=== PATIENT | male | born 2000 | race Caucasian/White ===

== ENCOUNTER 2019-10-04 14:50 | Emergency (ER) | payer OTHER ==
[~2019-10-04] VITALS: Ht 175.3 cm; Wt 65.9 kg
[2019-10-04] MEDS ORDERED: NS 1,000 ML IV ONE (15:30)
[2019-10-04] MEDS ORDERED: THIAMINE 100 MG TAB PO ONE (15:30)
[2019-10-04 15:46] LABS: BASO % 0.5 % (0.0-1.0); EOS # 0.1 10^3/uL (0.0-0.5); EOS % 1.1 % (0.0-3.0); HEMATOCRIT 44.2 % (42.0-52.0); HEMOGLOBIN 14.5 g/dl (13.5-17.5); LYMPH # 0.8 10^3/uL (1.5-5.0); MEAN CORPUSCULAR HGB CONC 32.8 g/dl (32.0-36.5); MEAN CORPUSCULAR VOLUME 85.5 fl (80.0-96.0); MONO # 0.6 10^3/uL (0.0-0.8); MONO % 7.8 % (0.0-5.0); NEUTROPHILS # 6.1 10^3/uL (1.5-8.5); NEUTROPHILS % 80.3 % (36.0-66.0); PLATELET COUNT, AUTOMATED 226 10^3/uL (150-450); RED BLOOD COUNT 5.17 10^6/uL (4.30-6.10); WHITE BLOOD COUNT 7.6 10^3/uL (4.0-10.0)
[2019-10-04 16:27] LABS: ALBUMIN 4.1 GM/DL (3.2-5.2); ALT/SGPT 19 U/L (12-78); BILIRUBIN,DIRECT 0.2 MG/DL (0.0-0.2); BILIRUBIN,TOTAL 0.4 MG/DL (0.2-1.0); BLOOD UREA NITROGEN 15 MG/DL (7-18); CALCIUM LEVEL 8.8 MG/DL (8.5-10.1); CARBON DIOXIDE LEVEL 30 MEQ/L (21-32); CHLORIDE LEVEL 105 MEQ/L (98-107); CK-MB VALUE MASS < 1.0 NG/ML (<3.6); CPK CREATINE PHOSPHOKINASE 140 U/L (39-308); ETHYL ALCOHOL (ETHANOL) < 0.003 % (0.000-0.010); GLOMERULAR FILTRATION RATE > 60.0 (>60); GLUCOSE, FASTING 95 MG/DL (70-100); MB/CK RELATIVE INDEX 0.71 (< OR =4); POTASSIUM SERUM 4.4 MEQ/L (3.5-5.1); SODIUM LEVEL 140 MEQ/L (136-145); TOTAL PROTEIN 7.3 GM/DL (6.4-8.2); TROPONIN I < 0.02 NG/ML (< 0.10)
[2019-10-04 16:45] VITALS: BP 140/70
--- NOTE | 2019-10-04 19:33 | ECGEPIP ---
[facility] - ED Test Date: 2019-10-04 Pat Name: JEANINE RUBI Department: Room: - Gender: Male Environmental Health Technologist: : 2000 Requested By: SIERRA Chris Order Number: [id number] Reading MD: Enrique Cavanaugh Measurements Intervals [place] Rate: 81 P: 72 CO: 141 QRS: 37 QRSD: 97 T: 20 QT: 354 QTc: 412 Interpretive Statements SINUS RHYTHM POSSIBLE RIGHT VENTRICULAR CONDUCTION DELAY NONSPECIFIC ST T WAVE CHANGES NO PRIOR ECG FOR COMPARISON Electronically Signed on 10-04-2019 19:32:43 EST by Enrique Cavanaugh
--- NOTE | 2019-10-05 07:38 | REP ---
PA LATERAL CHEST: 10/04/2019. CLINICAL HISTORY: Chest pain. FINDINGS: No prior study. Two-view show the lungs well inflated without infiltrate, effusion, atelectasis or mass. The heart, mediastinal and hilar contours are normal. There is no pneumothorax or pneumomediastinum. Bones are grossly intact. No compression deformity. No free air under the diaphragm. IMPRESSION: 1. Negative PA and lateral chest. Electronically Signed by Law Domingo MD 10/05/2019 09:29 A
== END 2019-10-04 16:59 | disposition home or self-care (01) ==
LOC: M ED 14:50 → EDBD 14:50 → M ED 16:59
DX: R00.2 Palpitations (principal); Z87.891 Personal history of nicotine dependence; F10.10 Alcohol abuse, uncomplicated
CPT/HCPCS: 71046; 80048; 80076; 82550; 82553; 84443; 84484; 85025; 93005; 93041; 94760; 99285; G0480

== ENCOUNTER 2019-11-01 15:49 | Emergency (ER) | payer OTHER ==
[~2019-11-01] VITALS: Ht 175.3 cm; Wt 67.3 kg
[2019-11-01 17:08] LABS: BASO # 0.1 10^3/uL (0.0-0.2); BASO % 0.7 % (0.0-1.0); EOS # 0.1 10^3/uL (0.0-0.5); EOS % 1.3 % (0.0-3.0); HEMATOCRIT 44.5 % (42.0-52.0); HEMOGLOBIN 15.3 g/dl (13.5-17.5); LYMPH # 1.1 10^3/uL (1.5-5.0); MEAN CORPUSCULAR HGB CONC 34.4 g/dl (32.0-36.5); MEAN CORPUSCULAR VOLUME 84.4 fl (80.0-96.0); MONO # 0.8 10^3/uL (0.0-0.8); MONO % 8.2 % (0.0-5.0); NEUTROPHILS # 7.3 10^3/uL (1.5-8.5); NEUTROPHILS % 77.5 % (36.0-66.0); PLATELET COUNT, AUTOMATED 271 10^3/uL (150-450); RED BLOOD COUNT 5.27 10^6/uL (4.30-6.10); WHITE BLOOD COUNT 9.4 10^3/uL (4.0-10.0)
[2019-11-01] MEDS ORDERED: NS 1,000 ML IV ONE (17:15)
--- NOTE | 2019-11-01 17:19 | REP ---
PA and lateral chest: Comparison is 10/04/2019. The lung noriega are clear. The cardiac size is normal. The natalia, mediastinum, and skeletal structures are unremarkable. Impression: Negative PA and lateral chest. There is no interval change. Electronically Signed by Benedict Sierra MD 11/01/2019 05:10 P
[2019-11-01 17:20] LABS: INR 1.07; PROTHROMBIN TIME 13.6 SECONDS (11.8-14.0)
[2019-11-01 17:21] LABS: PARTIAL THROMBOPLASTIN TIME 28.9 SECONDS (25.0-38.4)
[2019-11-01 17:30] LABS: ALBUMIN 4.4 GM/DL (3.2-5.2); ALT/SGPT 23 U/L (12-78); BILIRUBIN,DIRECT 0.1 MG/DL (0.0-0.2); BILIRUBIN,TOTAL 0.3 MG/DL (0.2-1.0); BLOOD UREA NITROGEN 19 MG/DL (7-18); CALCIUM LEVEL 9.2 MG/DL (8.5-10.1); CARBON DIOXIDE LEVEL 31 MEQ/L (21-32); CHLORIDE LEVEL 104 MEQ/L (98-107); CK-MB VALUE MASS < 1.0 NG/ML (<3.6); CPK CREATINE PHOSPHOKINASE 119 U/L (39-308); CREATININE FOR GFR 0.94 MG/DL (0.70-1.30); FREE T4 0.92 NG/DL (0.76-1.46); GLOMERULAR FILTRATION RATE > 60.0 (>60); GLUCOSE, FASTING 104 MG/DL (70-100); MAGNESIUM LEVEL 2.2 MG/DL (1.8-2.4); MB/CK RELATIVE INDEX 0.84 (< OR =4); PHOSPHORUS LEVEL 2.4 MG/DL (2.5-4.9); SODIUM LEVEL 140 MEQ/L (136-145); TOTAL PROTEIN 7.8 GM/DL (6.4-8.2); TROPONIN I < 0.02 NG/ML (< 0.10)
[2019-11-01 17:33] LABS: AMPHETAMINES LEVEL URINE NEGATIVE (NEGATIVE); BARBITURATES URINE NEGATIVE (NEGATIVE); BENZODIAZEPINES URINE NEGATIVE (NEGATIVE); CANNABINOIDS URINE NEGATIVE (NEGATIVE); COCAINE METABOLITE URINE NEGATIVE (NEGATIVE); METHADONE URINE NEGATIVE (NEGATIVE); OPIATES URINE NEGATIVE (NEGATIVE); PHENCYCLIDINE URINE NEGATIVE (NEGATIVE)
[2019-11-01] MEDS ORDERED: ISOVUE-370 76% 100ML VIAL (Q9967) As Ordered ONE (18:09)
[2019-11-01] MEDS ORDERED: NEUTRA-PHOS 1.5 GM PACKET PO ONE (18:15)
--- NOTE | 2019-11-01 18:51 | REPVR ---
PROCEDURE INFORMATION: Exam: CT Angiography Chest With Contrast Exam date and time: 11/01/2019 6:14 PM Age: 19 years old Clinical indication: Shortness of breath; Chest pain; Additional info: Pleuritic chest pain, tachy, SOB TECHNIQUE: Imaging protocol: Computed tomographic angiography of the chest with intravenous contrast. 3D rendering: MIP and/or 3D reconstructed images were created by the technologist. Radiation optimization: All CT scans at this facility use at least one of these dose optimization techniques: automated exposure control; mA and/or kV adjustment per patient size (includes targeted exams where dose is matched to clinical indication); or iterative reconstruction. Contrast material: ISOVUE 370; Contrast volume: 75 ml; Contrast route: IV; COMPARISON: CR Chest, 2 view PA, Lat 11/01/2019 4:54 PM FINDINGS: Pulmonary arteries: Normal. No pulmonary emboli. Aorta: Unremarkable. No aortic aneurysm. No aortic dissection. Lungs: Unremarkable. No consolidation. No masses. Pleural space: Unremarkable. No pneumothorax. No pleural effusion. Heart: Unremarkable. No cardiomegaly. No pericardial effusion. Lymph nodes: Unremarkable. No enlarged lymph nodes. Bones/joints: Unremarkable. No acute fracture. Soft tissues: Unremarkable. IMPRESSION: No acute findings. Electronically signed by: Lizandro Wolfe On 11/01/2019 18:50:56 PM
[2019-11-01 20:50] VITALS: BP 132/85
--- NOTE | 2019-11-01 21:01 | ECGEPIP ---
[facility] - ED Test Date: 2019-11-01 Pat Name: JEANINE RUBI Department: Room: - Gender: Male Special Inspector: : 2000 Requested By: JEANINE Enciso Order Number: [id number] Reading MD: Jacqueline Wood Measurements Intervals [place] Rate: 101 P: 69 [place]: 143 QRS: 30 QRSD: 105 T: 33 QT: 334 QTc: 435 Interpretive Statements SINUS TACHYCARDIA ABNORMAL RHYTHM ECG INCREASAED RATE 10/04/19 Electronically Signed on 11-01-2019 21:01:17 EST by Jacqueline Wood
== END 2019-11-01 20:54 | disposition home or self-care (01) ==
LOC: M ED 15:49
DX: R00.2 Palpitations (principal); Z87.891 Personal history of nicotine dependence
CPT/HCPCS: 36415; 71046; 71275; 80048; 80076; 80307; 81001; 82550; 82553; 83735; 84100; 84439; 84443; 84484; 85025; 85610; 85730; 93005; 93041; 94760; 96360; 96361; 99284; Q9967